=== PATIENT | female | born 1970 | race Caucasian/White ===

== ENCOUNTER 2021-11-05 16:12 | Emergency (ER) | payer OTHER ==
[2021-11-05 16:26] VITALS: BP 120/84; PULSE 101; RESP 24; TEMP 98.9
[2021-11-05] MEDS ORDERED: ALBUTEROL HFA INHALER INHALATION STA (16:52)
--- NOTE | 2021-11-05 17:20 | ED ---
General Adult HPI - General Chief complaint: Upper Respiratory Infection Stated complaint: Cough, Difficulty Breathing Time Seen by Provider: 11/05/21 16:28 Source: patient, RN notes reviewed, old records reviewed Mode of arrival: ambulatory Limitations: no limitations - History of Present Illness Initial comments: Patient is a 50-year-old female with past medical history remarkable for chronic tobacco use, hypertension who presents with the department complaining of a four-day history of worsening cough, difficulty breathing. She does have a history of relatively undiagnosed COPD. States her breathing improves with use of an albuterol inhaler at home. She is complaining of a cough productive of a dark greenish mucus. Patient states she was not vaccinated for COVID-19. To take a test 2 or 3 days ago that was negative. Patient's granddaughter was recently diagnosed with bronchitis. Patient did not receive the flu vaccine either. She otherwise denies chest pain, fevers, chills, sore throat. Denies any nausea, vomiting. Still has a sense of taste and smell. Is tolerating oral intake. Initially was seen at an outpatient urgent care, was given a steroid and instructed to come to the emergency department for further evaluation. No other workup was completed at that time. - Related Data Home Medications Medication Instructions Recorded Confirmed Ibuprofen [Motrin] 800 mg PO QID PRN 11/12/15 03/23/16 Previous Rx's Medication Instructions Recorded Hydrocodone/Acetaminophen [Brooks 1 each PO Q6HR PRN #5 tab 03/23/16 5-325] Penicillin V Potassium [Pen Vee K] 500 mg PO TID #40 tab 03/23/16 traMADol HCl [Ultram] 50 mg PO Q4H PRN #20 tab 03/23/16 Albuterol Inhaler [Ventolin Hfa 1 puff INHALATION RT-QID #8 gm 11/05/21 Inhaler] Doxycycline [Vibramycin] 100 mg PO BID 7 Days #2 capsule 11/05/21 predniSONE [Deltasone] 40 mg PO DAILY 5 Days #10 tab 11/05/21 Allergies Allergy/AdvReac Type Severity Reaction Status Date / Time codeine Allergy Rash/Hives Verified 11/05/21 16:26 tramadol Allergy Unknown Verified 11/05/21 16:26 Review of Systems ROS Statement: Those systems with pertinent positive or pertinent negative responses have been documented in the HPI. Review of Systems: CONST: Denies fever EYES: Denies blurry vision ENT: Denies nasal congestion C/V: Denies Chest pain RESP: Endorses cough GI: Denies abdominal pain : Denies dysuria SKIN: Denies rash. MSK: Denies joint pain. NEURO: Denies headache ROS Other: All systems not noted in ROS Statement are negative. Past Medical History Past Medical History: No Reported History History of Any Multi-Drug Resistant Organisms: None Reported Past Surgical History: Appendectomy, Hysterectomy Past Psychological History: No Psychological Hx Reported Smoking Status: Current every day smoker Past Alcohol Use History: Occasional Past Drug Use History: None Reported General Exam - General Exam Comments Initial Comments: General: Appears in no acute distress. HEAD: Normal with no signs of head trauma. EYES: PERRLA, EOMI, conjunctiva normal, no discharge. ENT: Hearing grossly intact, normal oropharynx. RESPIRATORY: Mild end-expiratory wheezing bilaterally. No obvious rhonchi. Mildly hypoxic with pulse ox ranging between 93 and 95%. No increased work of breathing. C/V: Regular rate and rhythm. S1 and S2 auscultated, no edema, peripheral pulses 2+ and intact throughout ABD: Abd is soft, nontender, nondistended EXT: Normal range of motion, no obvious deformity SKIN: No rashes or lesions observed on exposed skin. NEURO: Alert and oriented 4. Limitations: no limitations Course Vital Signs 11/05/21 16:23 Temperature 98.9 F Pulse Rate 101 H Respiratory 24 Rate Blood Pressure 120/84 O2 Sat by Pulse 93 L Oximetry Medical Decision Making - Medical Decision Making Is the patient's presentation and physical exam, does appear that she is experiencing a COPD exacerbation with possible infectious etiology in addition. I did recommend we obtain fluid Covid subsequent addition to chest x-ray. She was in agreement this plan. She already received steroids and therefore will receive an albuterol treatment. Patient was in agreement this plan. Chest x-ray showed possible developing pneumonia in the right lobe. COVID-19 please signs are negative. On reevaluation, I did update the patient. Vital signs remained within normal limits and stable. I believe it is safer to be discharged home. She'll be given a dose of doxycycline prior to discharge. She was in agreement with this plan. I will provide the patient with a prescription for prednisone 40 mg daily for 5 days, albuterol inhaler, doxycycline 100 mg twice a day for 7 days.. I instructed the patient to follow up with their PCP in the next 3 days. I explained that the patient should return to the emergency department if they experience any worsening symptoms. Strict return precautions were discussed with the patient. The patient expressed understanding of these instructions. I answered all questions that the patient had. The patient was discharged home in good condition with their prescriptions and follow up information. - Lab Data Lab Results 11/05/21 11/05/21 Range/Units 16:59 16:59 Coronavirus (PCR) Not Detected (Not Detectd) Influenza Type A RNA Not Detected (Not Detectd) Influenza Type B (PCR) Not Detected (Not Detectd) Disposition Clinical Impression: CAP (community acquired pneumonia), COPD exacerbation Disposition: HOME SELF-CARE Condition: Good Instructions (If sedation given, give patient instructions): Upper Respiratory Infection (ED), COPD (Chronic Obstructive Pulmonary Disease) (ED), Bacterial Pneumonia (ED) Prescriptions: predniSONE [Deltasone] 40 mg PO DAILY 5 Days #10 tab Albuterol Inhaler [Ventolin Hfa Inhaler] 1 puff INHALATION RT-QID #8 gm Doxycycline [Vibramycin] 100 mg PO BID 7 Days #2 capsule Is patient prescribed a controlled substance at d/c from ED?: No Referrals: Shabana Wilkerson NPC [Primary Care Provider] - 1-2 days
--- NOTE | 2021-11-05 17:52 | XR ---
EXAMINATION TYPE: XR chest 2V DATE OF EXAM: 11/05/2021 COMPARISON: 04/14/2011 HISTORY: Cough and congestion TECHNIQUE: 2 views FINDINGS: There is some mild infiltrate right lower lobe. The other lung elizondo are clear. Heart and mediastinum are normal. There is no pleural effusion. Bony thorax is intact. IMPRESSION: There is a mild right lower lobe pneumonia. This appears new compared to old exam.
[2021-11-05] MEDS ORDERED: DOXYCYCLINE 100 MG CAP PO STA (18:14)
== END 2021-11-05 18:46 | disposition home or self-care (01) ==
LOC: EC 16:12
DX: J44.1 Chronic obstructive pulmonary disease with (acute) exacerbation (principal); J18.9 Pneumonia, unspecified organism; F17.200 Nicotine dependence, unspecified, uncomplicated; I10 Essential (primary) hypertension; Z88.5 Allergy status to narcotic agent; Z20.822 Contact with and (suspected) exposure to COVID-19
CPT/HCPCS: 71046; 87502; 87635; 94640; 99285